=== PATIENT | male | born 1940 | race Caucasian/White ===

== ENCOUNTER 2018-05-25 12:53 | Inpatient (IN) ==
[2018-05-25 13:46] LABS: Basophils # 0.1 10*3/uL (0.0-0.2); Basophils % 0.3 % (0.0-0.8); Hematocrit 40.5 VOL% (42.0-52.0); Hemoglobin 13.2 GM/DL (14.0-18.0); Immature Granulocytes % 0.6 %; Immature Granulocytes Absolute 0.09 #; Lymphocytes # 1.2 10*3/uL (1.4-4.0); Lymphocytes % 7.9 % (21.2-54.2); Mean Corpuscular HGB Conc 32.6 GM/DL (32-36); Mean Corpuscular Hemoglobin 31 PG (27-34); Mean Corpuscular Volume 95.7 FL (87-102); Mean Platelet Volume 9.7 FL (9.6-12.0); Monocytes % 12.6 % (1.7-12.7); Neutrophils # 12.2 10*3/uL (1.4-7.4); Neutrophils % 78.6 % (38.7-73.9); Platelet Count 203 T/CUMM (130-400); Red Blood Count 4.23 MC/CUMM (3.8-5.5); Red Cell Distribution Width 12.6 % (9.3-17.3); White Blood Count 15.5 T/CUMM (4-12)
[2018-05-25 14:11] LABS: Albumin 3.7 G/DL (3.4-5.0); Bilirubin,Total 1.1 MG/DL (0.2-1.0); Calcium 8.6 MG/DL (8.5-10.1); Osmolality,Calculated 269.1 MOS/KG (273-304); Potassium 3.7 MMOL/L (3.5-5.1)
[2018-05-25 14:56] LABS: Apearance,Urine CLOUDY (Clear); Bilirubin,Urine Negative (Negative); Blood, Urine Small mg/dL (Negative); Glucose,Urine (UA) Negative (Negative); Ketones,Urine Negative (Negative); Mucus,Urine Occasional /LPF (Occasional); Nitrite,Urine Negative (Negative); Protein,Urine 30 MG/DL; RBC,Urine 15 /HPF (0-4); Urine Color Amber (Yellow); Urine Specific Gravity 1.017 (1.001-1.035); WBC,Urine 87 /HPF (0-6)
[2018-05-25] MEDS ORDERED: VANCOMYCIN INJ 1,000 MG in SODIUM CHLORIDE 0.9% 250 ML IV STA (15:18)
[2018-05-25] MEDS ORDERED: ONDANSETRON 4 MG/2 ML VIAL IV PRN (15:19)
[2018-05-25] MEDS: DOCUSATE SODIUM 100 MG CAPSULE PO SCH (23:16)
[2018-05-26] MEDS: ACETAMINOPHEN 325 MG TABLET PO PRN (04:58)
[2018-05-26] MEDS: LEVOFLOXACIN INJ 500 MG in PREMIX 1 EACH IV SCH (10:02)
[2018-05-26] MEDS: DOCUSATE SODIUM 100 MG CAPSULE PO SCH ×2 (10:02→21:33)
[2018-05-26] MEDS: PANTOPRAZOLE 40 MG TABLET PO SCH (10:02)
[2018-05-27] MEDS: DOCUSATE SODIUM 100 MG CAPSULE PO SCH ×2 (08:54→21:11)
[2018-05-27] MEDS: ACETAMINOPHEN 325 MG TABLET PO PRN ×2 (08:55→21:11)
[2018-05-27] MEDS: PANTOPRAZOLE 40 MG TABLET PO SCH (08:56)
[2018-05-27] MEDS: LEVOFLOXACIN INJ 500 MG in PREMIX 1 EACH IV SCH (08:56)
[2018-05-27] MEDS ORDERED: TAMSULOSIN 0.4 MG CAPSULE PO SCH (21:00)
[2018-05-28] MEDS: LEVOFLOXACIN INJ 500 MG in PREMIX 1 EACH IV SCH (09:47)
[2018-05-28] MEDS: DOCUSATE SODIUM 100 MG CAPSULE PO SCH (09:48)
[2018-05-28] MEDS: PANTOPRAZOLE 40 MG TABLET PO SCH (09:48)
[2018-05-28 11:38] VITALS: BP 121/81
== END 2018-05-28 12:08 | disposition home health service (06) | DRG 690 ==
LOC: EDBD → EDUNIT# → N.ED 12:53 → N.EDINP 15:17 → N.2E 19:44
PROVIDERS: ADMIT Family Medicine; ATTEND Family Medicine